=== PATIENT | male | born 1965 | race Caucasian/White ===

== ENCOUNTER 2019-04-18 12:28 | Emergency (ER) | payer MEDICAID ==
[~2019-04-18] VITALS: Ht 167.6 cm; Wt 79.5 kg
[2019-04-18] MEDS ORDERED: aspirin 81mg tab.chew PO ONE (13:20)
[2019-04-18 13:54] LABS: BASOPHILS % (AUTO) 0.3 % (0-1); EOSINOPHILS # (AUTO) 0.2 X10'3 (0-0.9); EOSINOPHILS % (AUTO) 1.6 % (0-6); HEMATOCRIT 46.8 % (42.0-52.0); HEMOGLOBIN 15.7 g/dl (14.0-17.9); LYMPHOCYTES # (AUTO) 2.4 X10'3 (1.1-4.8); LYMPHOCYTES % (AUTO) 18.6 % (21-51); MEAN CORPUSCULAR HEMOGLOBIN 31.7 PG (27.0-31.0); MEAN CORPUSCULAR HGB CONC 33.5 g/dL (33.0-36.5); MEAN CORPUSCULAR VOLUME 94.8 FL (78-98); MEAN PLATELET VOLUME 8.7 FL (7.4-10.4); MONOCYTES # (AUTO) 1.4 X10'3 (0-0.9); MONOCYTES % (AUTO) 10.9 % (2-12); NEUTROPHILS # (AUTO) 8.9 X10'3 (1.8-7.7); NEUTROPHILS % (AUTO) 68.6 % (42-75); PLATELET COUNT 257 X10'3 (140-440); RED BLOOD COUNT 4.94 X10'6 (4.70-6.10)
[2019-04-18 14:12] LABS: ALANINE AMINOTRANSFERASE 24 U/L (12-78); ALBUMIN 4.5 G/DL (3.4-5.0); ALBUMIN/GLOBULIN RATIO 1.3 (1.1-1.5); ALKALINE PHOSPHATASE 82 IU/L (46-116); ANION GAP 6 (8-16); ASPARTATE AMINO TRANSFERASE 20 U/L (10-37); BILIRUBIN,TOTAL 0.6 MG/DL (0.1-1.0); BLOOD UREA NITROGEN 9 MG/DL (7-18); BUN/CREATININE RATIO 10.6 (5.4-32.0); CALCIUM 8.8 MG/DL (8.5-10.1); CHLORIDE 102 MMOL/L (99-107); CREATININE 0.85 MG/DL (0.60-1.10); GLUCOSE 89 MG/DL (70-104); MAGNESIUM 2.1 MG/DL (1.5-2.4); POTASSIUM 4.3 MMOL/L (3.5-5.1); SODIUM 137 MMOL/L (135-145); TOTAL CARBON DIOXIDE 28.6 MMOL/L (24-32); eGFR > 90 ML/MIN
[2019-04-18 18:09] VITALS: BP 130/16
== END 2019-04-18 18:14 | disposition home or self-care (01) ==
LOC: ER 12:29
DX: R07.89 Other chest pain (principal); R05 Cough; M79.18 Myalgia, other site; I11.0 Hypertensive heart disease with heart failure; I50.9 Heart failure, unspecified; F17.200 Nicotine dependence, unspecified, uncomplicated; F12.90 Cannabis use, unspecified, uncomplicated; Z95.1 Presence of aortocoronary bypass graft; Z88.8 Allergy status to other drugs, medicaments and biological substances
CPT/HCPCS: 36415; 71046; 80053; 83605; 83735; 84484; 85025; 87040; 87502; 87503; 93005; 99285

== ENCOUNTER 2020-07-28 13:12 | Emergency (ER) | payer MEDICAID | END 2020-07-28 15:00 | disposition left against medical advice (07) | LOC: ER 13:13 | DX: R07.89 Other chest pain (principal); Z53.21 Procedure and treatment not carried out due to patient leaving prior to being seen by health care provider | CPT/HCPCS: 93005 ==

== ENCOUNTER 2020-11-17 04:47 | Emergency (ER) | payer MEDICAID ==
[~2020-11-17] VITALS: Ht 167.6 cm; Wt 77.2 kg
[2020-11-17] MEDS ORDERED: iohexol 350MG/ML 100ml bottle IV ONE (05:16)
[2020-11-17] MEDS ORDERED: dexamethasone sod phosphate 10mg/ml inj IV STA (05:23)
[2020-11-17] MEDS ORDERED: furosemide 10 MG/1 ML 10ml inj IV ONE (05:25)
[2020-11-17 05:53] LABS: HEMATOCRIT 40.4 % (42.0-52.0); HEMOGLOBIN 13.7 g/dl (14.0-17.9); MEAN CORPUSCULAR HEMOGLOBIN 32.5 PG (27.0-31.0)
[2020-11-17 05:55] LABS: BASOPHILS # (AUTO) 0.1 X10'3 (0-0.2); BASOPHILS % (AUTO) 0.7 % (0-1); EOSINOPHILS # (AUTO) 0.1 X10'3 (0-0.9); EOSINOPHILS % (AUTO) 1.5 % (0-6); LYMPHOCYTES # (AUTO) 1.3 X10'3 (1.1-4.8); LYMPHOCYTES % (AUTO) 18.1 % (21-51); MEAN CORPUSCULAR HGB CONC 33.9 g/dL (33.0-36.5); MEAN CORPUSCULAR VOLUME 95.6 FL (78-98); MONOCYTES # (AUTO) 0.9 X10'3 (0-0.9); MONOCYTES % (AUTO) 11.7 % (2-12); NEUTROPHILS # (AUTO) 5.1 X10'3 (1.8-7.7); PLATELET COUNT 273 X10'3 (140-440); RED BLOOD COUNT 4.23 X10'6 (4.70-6.10); RED CELL DISTRIBUTION WIDTH 16.4 % (11.5-14.5); WHITE BLOOD COUNT 7.4 X10'3 (4.5-11.0)
[2020-11-17 06:04] LABS: ALANINE AMINOTRANSFERASE 143 U/L (12-78); ALBUMIN 3.5 G/DL (3.4-5.0); ALBUMIN/GLOBULIN RATIO 1.1 (1.1-1.5); ALKALINE PHOSPHATASE 156 IU/L (46-116); ANION GAP 10 (8-16); ASPARTATE AMINO TRANSFERASE 141 U/L (10-37); BILIRUBIN,TOTAL 0.6 MG/DL (0.1-1.0); BLOOD UREA NITROGEN 22 MG/DL (7-18); BUN/CREATININE RATIO 21.6 (5.4-32.0); CALCIUM 8.7 MG/DL (8.5-10.1); CHLORIDE 105 MMOL/L (99-107); CREATININE 1.02 MG/DL (0.60-1.10); GLUCOSE 105 MG/DL (70-104); POTASSIUM 4.5 MMOL/L (3.5-5.1); SODIUM 141 MMOL/L (135-145); TOTAL CARBON DIOXIDE 26.2 MMOL/L (24-32); TOTAL PROTEIN 6.7 G/DL (6.4-8.2); eGFR 76 ML/MIN
[2020-11-17 06:18] LABS: C-REACTIVE PROTEIN 1.82 MG/DL (0.0-0.5); FERRITIN 193 NG/ML (26-388); LACTATE DEHYDROGENASE 319 U/L (85-227)
[2020-11-17 06:21] LABS: ABG BASE EXCESS -0.7 mmol/L (-2.0-2.0); ABG HCO3 20.7 mmol/L (22.0-26.0); ABG OXYGEN SATURATION 92.7 % (94-97); ABG PCO2 (T) 25.6 mmHg (35.0-48.0); ALLEN'S TEST POSITIVE; FCOHb 1.7 % (0.0-3.9); FMetHb 0.3 % (0.0-1.5); FO2Hb 90.8 % (94-97); PATIENT TEMPERATURE 36.5; TOTAL HEMOGLOBIN 14.4 G/dl (14.0-18.0)
[2020-11-17 06:25] LABS: ANISOCYTOSIS 1+; PLATELET ESTIMATE NORMAL
[2020-11-17 06:38] LABS: D-DIMER 1.09 MG/L FEU (0-0.50)
[2020-11-17 07:47] VITALS: BP 148/94
[2020-11-17] MEDS ORDERED: POTA10TA19 PO (09:53)
[2020-11-17] MEDS ORDERED: FURO40TA4 PO (09:53)
[2020-11-17] MEDS ORDERED: ALBU8HFA PO (09:53)
--- NOTE | 2020-11-17 10:22 | NUR ---
pt walked out of er door after getting his iv out ,pt stated that he does not want to wait for his community mental health social worker as i informed that they are trying to contact public health for hotel room for quarantine ,pt stated that my daughter is here ia m going to leave and i want community mental health social worker to come outside and talk to me about the placememnt ,pt also requesting for steroid medication informed that wait in room and i will talk to the pt and pt left the er in anger and said bring my prescription outside "am not waiting".notified charge nurse and the whole seen witness by paulino caballero and in front of manju goodson pt was making commment of leaving.
[2020-11-17] MEDS ORDERED: PRED20TA PO (10:38)
== END 2020-11-17 10:20 | disposition home or self-care (01) ==
LOC: ER 04:47
DX: R06.03 Acute respiratory distress (principal); I11.0 Hypertensive heart disease with heart failure; I50.9 Heart failure, unspecified; F12.10 Cannabis abuse, uncomplicated; Z20.822 Contact with and (suspected) exposure to COVID-19
CPT/HCPCS: 36415; 36600; 71045; 71275; 74174; 80053; 82728; 82803; 83615; 83880; 84145; 84484; 85008; 85018; 85025; 85379; 85384; 86140; 87635; 96374; 96375; 96376; 99285; C9803; J1100; J1940; Q9967